=== PATIENT | male | born 1975 | race Caucasian/White ===

== ENCOUNTER 2020-08-12 08:27 | Inpatient (IN) | payer MEDICAID, SELFPAY ==
[~2020-08-12] VITALS: Ht 175.3 cm; Wt 97.5 kg
[2020-08-12] MEDS ORDERED: NACL 0.9% 1,000 ML IV ONE (08:50)
[2020-08-12 09:11] LABS: BASOPHILS % (AUTO) 0.5 % (0.0-2.0); EOSINOPHILS # (AUTO) 0.1 K/uL (0-0.4); EOSINOPHILS % (AUTO) 1.5 % (0.0-4.0); HEMATOCRIT 39.2 % (36-52); HEMOGLOBIN 13.1 g/dL (12.0-18.0); LYMPHOCYTES # (AUTO) 1.3 K/uL (2.0-11.5); LYMPHOCYTES % (AUTO) 16.8 % (20.5-51.1); MEAN CORPUSCULAR HEMOGLOBIN 30 pg (27-31); MEAN CORPUSCULAR HGB CONC 34 g/dL (33-37); MEAN CORPUSCULAR VOLUME 88.5 fL (80-94); MONOCYTES # (AUTO) 0.7 K/uL (0.8-1.0); MONOCYTES % (AUTO) 8.9 % (1.7-9.3); NEUTROPHILS # (AUTO) 5.6 K/uL (1.8-7.7); NEUTROPHILS % (AUTO) 72.3 % (42.2-75.2); PLATELET COUNT (AUTO) 278 K/uL (140-450); RED BLOOD CELL COUNT(AUTO) 4.43 MIL/uL (4.20-6.10); RED CELL DISTRIBUTION WIDTH 14.4 % (11.6-13.7); WHITE BLOOD COUNT (AUTO) 7.7 K/uL (4.8-10.8)
[2020-08-12 09:48] LABS: ALBUMIN 3.3 g/dL (3.4-5.0); ANION GAP 15.4 (8-16); CARBON DIOXIDE 22.7 mmol/L (21-32); CREATININE 1.1 mg/dL (0.6-1.3); POTASSIUM 3.1 mmol/L (3.5-5.1); TOTAL BILIRUBIN 0.2 mg/dL (0.0-1.0)
[2020-08-12 10:03] LABS: BENZODIAZEPINE, URINE POS ng/mL (NEG <=200); CANNABINOID, URINE NEG ng/mL (NEG <=50); COCAINE, URINE NEG ng/mL (NEG <=300)
[2020-08-12 10:04] LABS: BARBITURATE, URINE NEG ng/ml (NEG <=200); OPIATE, URINE NEG ng/mL (NEG <=2000); PHENCYCLIDINE SCREEN,URINE NEG ng/mL (NEG <=25)
[2020-08-12] MEDS ORDERED: MULTIVITAMIN 1 TAB PO STA (10:43)
[2020-08-12] MEDS ORDERED: POTASSIUM CHLORIDE 10 MEQ TABER PO ONE (10:45)
[2020-08-12] MEDS ORDERED: HALOPERIDOL IM 5 MG/ML VIAL IM ONE (11:40)
[2020-08-12] MEDS ORDERED: LORazepam 1 MG TAB PO ONE (12:45)
[2020-08-12] MEDS ORDERED: LORazepam 2 MG/ML VIAL IM STA (13:49)
[2020-08-12 14:45] VITALS: BP 128/96
[2020-08-12 16:00] VITALS: BP 144/78
[2020-08-12 20:00] VITALS: BP 150/78
[2020-08-12] MEDS: QUEtiapine FUMARATE 100 MG TAB PO SCH (20:07)
[2020-08-12] MEDS: LORazepam 1 MG TAB PO PRN (20:07)
[2020-08-12] MEDS: DIVALPROEX 250 MG TABEC PO SCH (20:07)
[2020-08-12] MEDS ORDERED: CRUSHER, PILL MC ONE (20:08)
[2020-08-12] MEDS ORDERED: HYDROcodone/APAP 7.5/325 MG 1 TAB PO PRN (21:55)
[2020-08-12] MEDS ORDERED: POTASSIUM CHLORIDE 10 MEQ TABER PO PRN (21:55)
[2020-08-12] MEDS ORDERED: guaiFENesin DM 200/20 MG-10 ML 10 ML UDC PO PRN (21:55)
[2020-08-12] MEDS ORDERED: ONDANSETRON 4 MG/2 ML VIAL IM/IVP PRN (21:55)
[2020-08-12] MEDS ORDERED: ACETAMINOPHEN 325 MG TAB PO PRN (21:55)
[2020-08-12] MEDS ORDERED: DOCUSATE SODIUM 100 MG GELCAP PO PRN (21:55)
[2020-08-12] MEDS ORDERED: ZOLPIDEM 5 MG TAB PO PRN (21:55)
[2020-08-12 23:03] LABS: CHOL/HDL RATIO 2.7 (1-4.5); FREE T4 (FREE THYROXINE) 1.05 ng/dL (0.76-1.46); MAGNESIUM 1.6 mg/dL (1.8-2.4); PHOSPHORUS 2.8 mg/dL (2.5-4.9); THYROID STIMULATING HORMONE 1.61 uIU/mL (0.34-3.74)
[2020-08-12 23:04] LABS: PROTHROMBIN TIME 10.3 secs (10.8-13.4)
[2020-08-12 23:20] LABS: ALBUMIN 3.4 g/dL (3.4-5.0); CARBON DIOXIDE 24.5 mmol/L (21-32); POTASSIUM 3.5 mmol/L (3.5-5.1); TOTAL BILIRUBIN 0.4 mg/dL (0.0-1.0)
[2020-08-13] VITALS: BP 144/90
[2020-08-13 00:40] LABS: APPEARANCE,URINE CLEAR (CLEAR); BILIRUBIN,URINE NEGATIVE (NEGATIVE); BLOOD, URINE NEGATIVE (NEGATIVE); COLOR,URINE YELLOW (YELLOW); LEUKOCYTE ESTERASE ,URINE NEGATIVE (NEGATIVE); NITRITE, URINE NEGATIVE (NEGATIVE); PH,URINE 6.5 (5.0-9.0); UGLUCOSE NEGATIVE (NEGATIVE)
[2020-08-13 04:00] VITALS: BP 135/87
[2020-08-13] MEDS: LORazepam 1 MG TAB PO PRN (05:54)
[2020-08-13] MEDS: DIVALPROEX 250 MG TABEC PO SCH ×2 (07:59→21:00)
[2020-08-13 08:00] VITALS: BP 162/103
[2020-08-13] MEDS: QUEtiapine FUMARATE 100 MG TAB PO SCH ×2 (08:06→21:00)
[2020-08-13] MEDS ORDERED: MAGNESIUM OXIDE 400 MG TAB PO SCH (09:00)
[2020-08-13] MEDS ORDERED: FOLIC ACID 1 MG TAB PO SCH (09:00)
[2020-08-13] MEDS ORDERED: THIAMINE 100 MG TAB PO SCH (09:00)
[2020-08-13] MEDS ORDERED: SERTRALINE 50 MG TAB PO SCH (09:00)
[2020-08-13] MEDS ORDERED: MULTIVITAMIN 1 TAB PO SCH (09:00)
[2020-08-13] MEDS ORDERED: PANTOPRAZOLE 40 MG TABEC PO SCH (09:00)
[2020-08-13] MEDS ORDERED: MULTIVITAMIN-12 10 ML, THIAMINE 100 MG, FOLIC ACID 1 MG, MAGNESIUM SULFATE 50% 2,000 MG... IV SCH ×5 (13:00)
[2020-08-14] VITALS: BP 146/98
[2020-08-14] MEDS ORDERED: ATORVASTATIN 20 MG TAB PO SCH (09:00)
[2020-08-14] MEDS ORDERED: MULT-2253 PO (09:51)
[2020-08-14] MEDS ORDERED: LISI10TA11 PO (09:51)
[2020-08-14 12:20] LABS: T4 (THYROXINE) 6.4 ug/dL (4.5-12.0)
== END 2020-08-14 09:40 | disposition home or self-care (01) | DRG 52 ==
LOC: MED 08:27 → MTU 14:18
PROVIDERS: ADMIT Family Medicine; ATTEND Family Medicine
DX: G92 Toxic encephalopathy (principal); F10.10 Alcohol abuse, uncomplicated; Y90.8 Blood alcohol level of 240 mg/100 ml or more; E83.42 Hypomagnesemia; R45.851 Suicidal ideations; Z20.828 Contact with and (suspected) exposure to other viral communicable diseases; F20.9 Schizophrenia, unspecified; E78.5 Hyperlipidemia, unspecified; I10 Essential (primary) hypertension; F39 Unspecified mood [affective] disorder; F13.90 Sedative, hypnotic, or anxiolytic use, unspecified, uncomplicated
CPT/HCPCS: 36415; 70450; 71045; 80053; 80305; 81003; 82150; 83036; 83690; 83735; 83880; 84100; 84436; 84439; 84443; 84479; 84484; 85025; 85610; 85730; 87081; 93005; 96372; 99285; A9153; G0482; J1630; J3411; J3475; J3490; Q0092; U0003-CS

== ENCOUNTER 2021-07-18 15:09 | Emergency (ER) | payer MEDICAID, SELFPAY ==
[~2021-07-18] VITALS: Ht 172.7 cm; Wt 90.7 kg
[~2021-07-18 15:09] MED LIST: LISI-486 PO; MULT-2253 PO
[2021-07-18 16:40] VITALS: BP 161/102
--- NOTE | 2021-07-18 16:40 | NUR ---
lab bedside collecting blood work from pt
[2021-07-18 16:54] LABS: BASOPHILS # (AUTO) 0.1 K/uL (0.00-0.22); BASOPHILS % (AUTO) 0.7 % (0.0-2.0); EOSINOPHILS % (AUTO) 0.4 % (0.0-4.0); HEMATOCRIT 39.2 % (36-52); HEMOGLOBIN 13.4 g/dL (12.0-18.0); LYMPHOCYTES # (AUTO) 2.7 K/uL (2.0-11.5); LYMPHOCYTES % (AUTO) 33.3 % (20.5-51.1); MEAN CORPUSCULAR HEMOGLOBIN 31 pg (27-31); MEAN CORPUSCULAR HGB CONC 34 g/dL (33-37); MEAN CORPUSCULAR VOLUME 90.5 fL (80-94); MONOCYTES # (AUTO) 0.8 K/uL (0.8-1.0); MONOCYTES % (AUTO) 9.4 % (1.7-9.3); NEUTROPHILS # (AUTO) 4.5 K/uL (1.8-7.7); NEUTROPHILS % (AUTO) 56.2 % (42.2-75.2); PLATELET COUNT (AUTO) 120 K/uL (140-450); RED BLOOD CELL COUNT(AUTO) 4.34 MIL/uL (4.20-6.10); RED CELL DISTRIBUTION WIDTH 15.4 % (11.6-13.7)
--- NOTE | 2021-07-18 17:07 | NUR ---
PT BROUGHT TO BED 7 VIA ISAB[facility] STRICKLAND
[2021-07-18 17:11] LABS: ALBUMIN 3.4 g/dL (3.4-5.0); ANION GAP 16.9 (8-16); ASPARTATE AMINOTRANSFERASE 85 U/L (15-37); CARBON DIOXIDE 24.6 mmol/L (21-32); CHLORIDE 107 mmol/L (98-107); GFR ARICAN-AMERICAN 105 mL/min (>90); GLUCOSE 117 mg/dL (74-106); POTASSIUM 3.5 mmol/L (3.5-5.1); SODIUM SERUM 145 mmol/L (136-145); TOTAL BILIRUBIN 0.3 mg/dL (0.0-1.0); UREA NITROGEN, BLOOD 4 mg/dL (7-18)
[2021-07-18 17:12] LABS: ACETAMINOPHEN < 0.5 ug/ml (10-30); SALICYLATE < 2.8 mg/dL (2.8-20.0)
--- NOTE | 2021-07-18 17:30 | NUR ---
45/M BIBA with c/o ETOH. Per EMS patient was found by police lying on the ground surrounded by empty beer bottls. Patient is slurring his speech and hard to comprehend. Admits to drink unknown amount of budweiser. Patient not following directions, smells of alcohol. Patient not stating any c/o at this time.
[2021-07-18] MEDS ORDERED: LORazepam 2 MG/ML VIAL IM ONE (17:40)
[2021-07-18] MEDS ORDERED: HALOPERIDOL IM 5 MG/ML VIAL IM ONE (17:40)
--- NOTE | 2021-07-18 17:45 | NUR ---
Patient continuing to get out of bed and take his gown off, patient reoriented and placed back in bed and on bedside monitor.
--- NOTE | 2021-07-18 18:00 | NUR ---
Patient provided with sandwich and juice.
--- NOTE | 2021-07-18 18:15 | NUR ---
Patient continuing to get out of bed and take his gown off, patient reoriented and placed back in bed and on bedside monitor.
[2021-07-18 21:22] VITALS: BP 128/84
== END 2021-07-18 21:22 | disposition home or self-care (01) ==
LOC: MED 15:09
DX: F10.129 Alcohol abuse with intoxication, unspecified (principal); R51.9 Headache, unspecified
CPT/HCPCS: 36415; 80053; 85025; 96372; 99284; G0480; G0482; J1630; J2060; 99283